=== PATIENT | female | born 1975 | race Caucasian/White ===

== ENCOUNTER 2024-06-02 08:12 | Outpatient (OUT) | payer OTHER, BC, SELFPAY ==
--- NOTE | 2024-06-02 08:31 | FL_ITS ---
[address] [address] Patient Name: LIAM THOMAS MRN: [id number] date: 1975 Sex: F Assigned Patient Location: [place] Current Patient Location: [place] Accession/Order Number: [id number] Exam Date: 06/02/2024 08:37 Report Date: 06/02/2024 09:35 At the request of: PATRICK JOLLEY Procedure: FL barium swallow EXAMINATION: FL barium swallow/esophagram, FL cineradiography HISTORY: Pharyngoesophageal dyshpagia R13.14 FLUORO DOSE: Unknown. 45 seconds of fluoroscopy. 6 images COMPARISON: No relevant comparison available. TECHNIQUE: A swallowing evaluation was performed with fluoroscopy in the usual manner. Standard level fluoroscopic mode of operation utilized. Injection was given liquid barium as well as a barium tablet with water The procedure was recorded FINDINGS: ORAL PHASE: Normal deglutition. PHARYNGEAL PHASE: Normal swallowing. ASPIRATION: None. ESOPHAGUS: Normal. No visible obstruction, stricture, or dilatation. No diverticula STOMACH: Negative. FL/FL barium swallow IMPRESSION: Normal exam Electronically authenticated by: LANE JOSEPH Date: 06/02/2024 09:35
--- NOTE | 2024-06-02 08:31 | FL_ITS ---
[address] [address] Patient Name: LIAM THOMAS MRN: [id number] date: 1975 Sex: F Assigned Patient Location: [place] Current Patient Location: [place] Accession/Order Number: [id number] Exam Date: 06/02/2024 08:37 Report Date: 06/02/2024 09:35 At the request of: PATRICK JOLLEY Procedure: FL cineradiography EXAMINATION: FL barium swallow/esophagram, FL cineradiography HISTORY: Pharyngoesophageal dyshpagia R13.14 FLUORO DOSE: Unknown. 45 seconds of fluoroscopy. 6 images COMPARISON: No relevant comparison available. TECHNIQUE: A swallowing evaluation was performed with fluoroscopy in the usual manner. Standard level fluoroscopic mode of operation utilized. Injection was given liquid barium as well as a barium tablet with water The procedure was recorded FINDINGS: ORAL PHASE: Normal deglutition. PHARYNGEAL PHASE: Normal swallowing. ASPIRATION: None. ESOPHAGUS: Normal. No visible obstruction, stricture, or dilatation. No diverticula STOMACH: Negative. FL/FL cineradiography IMPRESSION: Normal exam Electronically authenticated by: LANE JOSEPH Date: 06/02/2024 09:35
== END 2024-06-02 08:13 | disposition home or self-care (01) ==
LOC: FL 08:17
PROVIDERS: PCP Family Medicine; Visit Provider Otolaryngology
DX: R13.14 Dysphagia, pharyngoesophageal phase (principal)
CPT/HCPCS: 74220; 76120